=== PATIENT | female | born 1965 | race Native Hawaiian/Other Pacific Islander ===

== ENCOUNTER 2022-03-23 21:50 | Emergency (ER) | payer OTHER ==
[~2022-03-23] VITALS: Ht 172.7 cm; Wt 91.6 kg
[~2022-03-23 21:50] MED LIST: ALPR0.5T24 PO; AMLO5TAB PO; BENZ100C8 PO; BUPAP1 TAB OR; DICL1GEL2 TOP; ESTR0.6211 PO; ESTRING2 MG PO; FLUT0.05 NAS; LIDOPATCH TOP; LOPRESSOR100 MG PO; LYRICA75 MG OR; METH10TA64 PO; PANT40TA PO; ROBAXIN-750750 MG PO; SERT100T PO; TIZA4TAB5 PO; TOPAMAX100 MG OR; TRAM50TA PO; VERELAN180 MG OR; WELCHOL625 MG OR; Z-PAK PO; ZOFRAN8 MG OR
[2022-03-23 22:10] VITALS: TEMP 98.7
[2022-03-23 22:50] LABS: PLATELET COUNT 202 K/uL (152-353)
[2022-03-23 22:58] LABS: POTASSIUM 3.3 mmol/L (3.6-5.2)
[2022-03-24 01:31] VITALS: BP 108/64
== END 2022-03-24 01:31 | disposition home or self-care (01) ==
LOC: ED 21:50
PROVIDERS: Emergency Medicine Emergency Medical Services
DX: K52.89 Other specified noninfective gastroenteritis and colitis (principal); E87.6 Hypokalemia
CPT/HCPCS: 36415; 80053; 81002; 82150; 82272; 83690; 83735; 85027; 87015; 87045; 87324; 87328; 87329; 87425; 87449; 87899; 96360; 96361; 96374; 96375; 99284; J2270; J2405; J3490; Q9963